=== PATIENT | male | born 1970 | race Caucasian/White ===

== ENCOUNTER 2019-11-03 07:50 | Inpatient (IN) | payer MEDICAID ==
[~2019-11-03] VITALS: Ht 170.2 cm; Wt 62.7 kg
[2019-11-03] VITALS (11 sets, daily range): BP systolic 112–150; BP diastolic 67–90; Ht 170.2 cm; Wt 62.7 kg
[2019-11-03 08:50] LABS: BASOPHILS 0.1 % (0-2); HEMATOCRIT 41.4 % (42.0-54.0); IMMATURE GRANULOCYTES 0.3 % (0-5); LYMPHOCYTES 10.4 % (15-50); MCH 30.4 pg (26.0-34.0); MCHC 33.8 g/dL (31.0-37.0); MCV 89.8 fL (80.0-100.0); MEAN PLATELET VOLUME 8.2 fL (7.4-10.4); MONOCYTES 9.2 % (2-11); PLATELET COUNT 422 10x3/uL (130-400); RBC 4.61 10x6/uL (4.20-6.10); RDW 12.3 % (11.5-14.5); WBC 16.4 10x3/uL (4.8-10.8)
[2019-11-03 08:58] LABS: CALC OSMOLALITY 266 mosm/kg (275-300); CALCIUM 8.4 mg/dL (8.5-10.1); CARBON DIOXIDE 26.8 mmol/L (21.0-32.0); CHLORIDE - SERUM 101 mmol/L (98-107); GLUCOSE 106 mg/dL (74-106); POTASSIUM - SERUM 3.8 mmol/L (3.5-5.1); SODIUM 133 mmol/L (136-145); UREA NITROGEN 16 mg/dL (7-18); eGFR NON AFRICAN AMERICAN 85 mL/min (90-120)
[2019-11-03 08:59] LABS: APTT 37.7 SECONDS (22.8-39.4); INR 1.2 (0.85-1.17); PROTIME 15.1 SECONDS (11.6-15.0)
[2019-11-03 09:15] LABS: ALBUMIN 2.9 g/dL (3.4-5.0); ALKALINE PHOSPHATASE 69 U/L (30-120); ALT (SGPT) 24 U/L (10-68); BILIRUBIN - TOTAL 0.45 mg/dL (0.2-1.3); CKMB 0.1 U/L (0.0-3.6); CREATINE KINASE 51 UL (21-232); PROTEIN - SERUM 7.4 g/dL (6.4-8.2); TROPONIN-I < 0.017 ng/mL (0.000-0.060)
[2019-11-03 10:02] LABS: BILIRUBIN NEGATIVE (NEGATIVE); GLUCOSE NEGATIVE (NEGATIVE); KETONE NEGATIVE (NEGATIVE); NITRITE NEGATIVE (NEGATIVE)
[2019-11-03 10:03] LABS: BACTERIA FEW /hpf (NEGATIVE); EPITHELIAL CELLS OCC /hpf (0-5); WHITE CELLS - URINE 25-50 /hpf (NEGATIVE)
--- NOTE | 2019-11-03 13:43 | NUR ---
MEAL TRAY PROVIDED.
--- NOTE | 2019-11-03 19:30 | NUR ---
PT RESTING IN BED WATCHIING TV. HE DENIES PAIN OR NEEDS AT THIS TIME. HE STATES HE HASNT BEEN SLEEPING WELL AND WOULD LIKE TO GO TO SLEEP NOW. HE DENIES PAIN OR NEEDS. VSS. BED IS LOW AND CALL LIGHT IS WITHIN REACH.
[2019-11-04 00:32] VITALS: BP 121/83
[2019-11-04 04:09] LABS: BASOPHILS 0.2 % (0-2); EOSINOPHILS 0.8 % (0-7); HEMATOCRIT 39.5 % (42.0-54.0); HEMOGLOBIN 13.2 g/dL (13.5-17.5); IMMATURE GRANULOCYTES 0.3 % (0-5); LYMPHOCYTES 11.5 % (15-50); MCH 30.6 pg (26.0-34.0); MCHC 33.4 g/dL (31.0-37.0); MCV 91.6 fL (80.0-100.0); MEAN PLATELET VOLUME 8.2 fL (7.4-10.4); MONOCYTES 9.3 % (2-11); NEUTROPHILS 77.9 % (40-80); PLATELET COUNT 397 10x3/uL (130-400); RBC 4.31 10x6/uL (4.20-6.10); RDW 12.3 % (11.5-14.5); WBC 17.7 10x3/uL (4.8-10.8)
[2019-11-04 04:22] LABS: ALBUMIN 2.5 g/dL (3.4-5.0); ALKALINE PHOSPHATASE 56 U/L (30-120); ALT (SGPT) 19 U/L (10-68); BILIRUBIN - TOTAL 0.61 mg/dL (0.2-1.3); CALC OSMOLALITY 263 mosm/kg (275-300); CALCIUM 8.2 mg/dL (8.5-10.1); CARBON DIOXIDE 28.8 mmol/L (21.0-32.0); CHLORIDE - SERUM 99 mmol/L (98-107); GLUCOSE 86 mg/dL (74-106); POTASSIUM - SERUM 4.2 mmol/L (3.5-5.1); PROTEIN - SERUM 6.4 g/dL (6.4-8.2); SODIUM 133 mmol/L (136-145); eGFR NON AFRICAN AMERICAN 85 mL/min (90-120)
[2019-11-04 04:37] LABS: UREA NITROGEN 11 mg/dL (7-18)
[2019-11-04 04:51] VITALS: BP 114/71
--- NOTE | 2019-11-04 06:20 | NUR ---
PT REPORTS WHILE HE WAS IN THE ER YESTERDAY GETTING A XRAY, STAFF REMOVED HIS GOLD NECKLACE AND HE JUST NOW REALIZED IT WAS MISSING. CALLED ER AND SPOKE TO UMER WHO ASKED AROUND THE ER BUT THE GOLD NECKLACE WAS NOT LOCATED. CALLED RADIOLOGY AT [id number] TO ASK THEM BUT THEY DID NOT ANSWER THE PHONE. WILL PASS THIS ALONG TO THE ONCOMING NURSE.
[2019-11-04 09:00] VITALS: BP 121/87
[2019-11-04 11:00] VITALS: BP 118/82
--- NOTE | 2019-11-04 12:32 | NUR ---
RESTS IN BED WITH EYES CLOSED. IV PATENT. CALL LIGHT IN REACH. WILL MONITOR NEEDS.
[2019-11-04 15:00] VITALS: BP 115/82
[2019-11-04 15:46] LABS: UDS - AMPHET POSITIVE QUAL (NEGATIVE); UDS - BARB NEGATIVE QUAL (NEGATIVE); UDS - BENZO NEGATIVE QUAL (NEGATIVE); UDS - COCAINE NEGATIVE QUAL (NEGATIVE); UDS - OPIATE NEGATIVE QUAL (NEGATIVE); UDS - PCP NEGATIVE QUAL (NEGATIVE); UDS - THC POSITIVE QUAL (NEGATIVE)
--- NOTE | 2019-11-04 19:23 | NUR ---
RECIEVED LAYING IN BED WITH EYES CLOSED. AROUSES TO VERBAL STIMULI. ORIENTED X4. UP AD ABDELRAHMAN TO B/R. IV TO LT AC SL. IV TO RT FA WITH NS @ 125CC/HR. NO REDNESS OR SWELLING TO SITE. DENIES ANY NEEDS AT THIS TIME.
[2019-11-04 20:00] VITALS: BP 124/76
[2019-11-05 05:09] LABS: BASOPHILS 0.2 % (0-2); EOSINOPHILS 1.4 % (0-7); HEMATOCRIT 36.2 % (42.0-54.0); HEMOGLOBIN 12.2 g/dL (13.5-17.5); IMMATURE GRANULOCYTES 0.4 % (0-5); LYMPHOCYTES 15.5 % (15-50); MCH 30.6 pg (26.0-34.0); MCHC 33.7 g/dL (31.0-37.0); MCV 90.7 fL (80.0-100.0); MEAN PLATELET VOLUME 8.2 fL (7.4-10.4); MONOCYTES 9.6 % (2-11); NEUTROPHILS 72.9 % (40-80); PLATELET COUNT 362 10x3/uL (130-400); RBC 3.99 10x6/uL (4.20-6.10); RDW 12.3 % (11.5-14.5)
[2019-11-05 05:11] LABS: WBC 12.2 10x3/uL (4.8-10.8)
[2019-11-05 05:29] LABS: CALC OSMOLALITY 267 mosm/kg (275-300); CALCIUM 7.9 mg/dL (8.5-10.1); CARBON DIOXIDE 25.5 mmol/L (21.0-32.0); CHLORIDE - SERUM 101 mmol/L (98-107); CREATININE - SERUM 0.9 mg/dL (0.6-1.3); GLUCOSE 84 mg/dL (74-106); POTASSIUM - SERUM 4.1 mmol/L (3.5-5.1); SODIUM 135 mmol/L (136-145); UREA NITROGEN 11 mg/dL (7-18); eGFR NON AFRICAN AMERICAN > 90 mL/min (90-120)
[2019-11-05 09:00] VITALS: BP 117/74
[2019-11-05] MEDS ORDERED: LEVOFLOXACIN500 MG PO (10:42)
--- NOTE | 2019-11-05 12:05 | NUR ---
PT GIVEN GOOD RX CARD AND BETTER MORALES FOR LEVAQUIN AT [facility] AND CALLED TO [facility] IN [place] REQUESTED BY PT.
--- NOTE | 2019-11-05 13:13 | NUR ---
PT ESCORTED OUT VIA WHEELCHIAR
== END 2019-11-05 13:13 | disposition home or self-care (01) | DRG 871 ==
LOC: D.ER 07:50 → D.M2 11:03
PROVIDERS: Family Medicine; ADMIT Family Medicine; ATTEND Family Medicine
DX: A41.9 Sepsis, unspecified organism (principal); J18.9 Pneumonia, unspecified organism; N39.0 Urinary tract infection, site not specified; E87.1 Hypo-osmolality and hyponatremia; G43.909 Migraine, unspecified, not intractable, without status migrainosus